=== PATIENT | female | born 1960 | race Caucasian/White ===

== ENCOUNTER 2025-02-22 09:39 | Emergency (ER) | payer OTHER, SELFPAY ==
[2025-02-22] VITALS (10 sets, daily range): BP systolic 123–159; BP diastolic 69–96; PULSE 67–75; BMI 23.1
[2025-02-22 09:53] LABS: Glucose - Point of Care 94 mg/dl (70-99)
[2025-02-22] MEDS: NSS 1000 IV (10:10)
[2025-02-22 10:30] LABS: Hematocrit 37.3 % (37.0-47.0); Hemoglobin 12.5 g/dL (12.0-16.0); Mean Corp Hgb Conc. 33.5 g/dL (33.0-37.0); Mean Corpuscular Volume 84.4 fL (81.0-99.0); Nucleated Red Blood Cells % 0 %; Platelet Count 327 10^3/uL (130-400); Red Cell Dist. Width 13.2 % (11.5-14.5)
[2025-02-22 10:31] LABS: ALT (SGPT) 33 U/L (0-35); AST (SGOT) 28 U/L (14-36); Albumin 4.2 g/dl (3.5-5.0); Alkaline Phosphatase 101 U/L (38-126); Blood Urea Nitrogen 21 mg/dl (7-17); Calcium 9.3 mg/dl (8.4-10.2); Carbon Dioxide 28 mmol/L (22-30); Chloride 104 mmol/L (98-107); Estimated Creatinine Clearance 54 ml/min; Glucose 84 mg/dl (70-99); Potassium 4.6 mmol/L (3.5-5.1); Sodium 137 mmol/L (135-145); Total Protein 7.2 g/dl (6.3-8.2); eGFR > 60.00
--- NOTE | 2025-02-22 10:43 | ED.GENMED ---
History of Present Illness
General
Chief Complaint: Fainting/Passed Out
Time Seen by Provider: 02/22/25 09:44
History of Present Illness
History of Present Illness:
64-year-old female with prior history of cervical fusion and recent diagnosis of a brain tumor presenting to the emergency department for syncope. [facility] from [facility]. She notes that she was laying down and started to feel
dizzy. She stood up to get someone to come help her and next and she knew, she was on the ground. Notes it is a diagnosis of a brain tumor, has had some memory issues and dizziness. She was supposed to follow-up with neurosurgery for possible
operative management, however ended up getting arrested and put in halfway. Denies focal weakness or sensory deficits to her extremities. Does note chronic right lower extremity drop. Does note that she ate breakfast this morning. Has been seen
in the emergency department for syncope in the past. Preceding symptoms, did have an episode of chest discomfort which has since resolved. Denies fever. Denies additional acute medical complaints
Past History
Past History
ED Past Medical History: None
ED Past Surgical History: Orthopedic (neck and back surgeries)
Social History
Tobacco: Smoker
Alcohol: None
Personal: Single
Living: alone
Employment: Disabled
Phy Exam
Physical Exam
Physical Exam:
General: Well-appearing, no clinical signs of dehydration, nontoxic and in no acute distress
HEENT: protecting airway, no midline tenderness. Mild tenderness to the left cervical musculature
Head: atraumatic
Neck: appears supple
CV: Normal heart rate, regular rhythm
Resp: No accessory muscle use, no increased work of breathing, lungs clear to auscultation bilaterally
Abd: No distention
Extremities: No deformities, no swelling
Neuro: alert, no focal neurologic deficit. Chronic reported weakness to the right lower extremity comparison to the left
: deferred
Rectal: deferred
Psych: Normal affect
Skin: Intact
Course
Orders/Labs/Results
Orders:
Orders
02/22/25 09:44
EKG [Electrocardiogram (*1)] Urgent
Reason for Study: Tachycardia
EKG- Treatment ONCE
02/22/25 10:01
Orthostatic VS- Treatment ONCE
0.9% Sodium Chloride 1000 ml [Nss] 1,000 ml IV BOLUS
02/22/25 10:02
CT Head W/o Iv Contrast Urgent
Comment:
Reason For Exam: syncope, hx of 'brain tumor'
02/22/25 10:04
CT Cervical Spine W/o Iv Contr Urgent
Comment:
Reason For Exam: generliazed pain after fall
02/22/25 10:06
Complete Blood Count/With Diff Urgent
Comprehensive Metabolic Panel Urgent
Troponin I Urgent
Abnormal Lab Results
02/22/25
10:06
Monocytes % 9.7 H %
(1.7-9.3)
BUN 21 H mg/dl
(7-17)
02/22/25 10:06
02/22/25 10:06
Vital Signs
Initial and Last Documented VS:
Initial Vital Signs
Temp Pulse Resp BP Pulse Ox
97.8 F 63 18 137/90 97
02/22/25 09:41 02/22/25 09:41 02/22/25 09:41 02/22/25 09:41 02/22/25 09:41
Last Documented Vital Signs
Temp Pulse Resp BP Pulse Ox
97.8 F 60 16 159/89 100
02/22/25 09:41 02/22/25 10:15 02/22/25 10:07 02/22/25 10:07 02/22/25 10:46
MDM/Problems Addressed
MDM/Problems Addressed:
64-year-old female with history of chronic neck and back issues presenting after a syncopal episode. Vital signs on arrival are normal.
On exam patient is resting comfortably, no acute distress. Presently unremarkable cardiac, pulmonary, neurologic exam. Patient notes that her symptoms were preceded with some chest pressure. The symptoms have since resolved. EKG on arrival is
nonischemic. Will screen further with troponin. Lower suspicion for ACS at this time. Patient also notes that she has been having ongoing dizziness ever since she was diagnosed with a brain tumor. She notes that it is benign. Suspected
meningioma. No present focal neurologic deficits with lower suspicion for acute neurologic process, however given patient's prior history, will screen with CT brain imaging. Ultimately suspect orthostatic component. Syncope occurred after lying
to standing position. Will treat with fluids in the setting of volume depletion and screen with laboratory analysis including electrolyte panel
13:00 - Patient's labs are unremarkable and CT brain/cervical spine without acute pathology. Patient remains hemodynamically stable. Orthostatics are reassuring. Ultimately feel stable for discharge back to patient's facility with continued
outpatient supportive therapy and follow-up. Return precautions discussed and patient verbalized understanding
*Pulse Oximetry
SaO2: 100
Oxygen Mode of Delivery: Room air
Patient hypoxic: no
*EKG
Interpreted by ED Provider?: Yes
EKG Intrepretation Date: 02/22/25
EKG Intrepretation Time: 10:46
Interpretation: normal
Heart Rate: 61
Rate: normal
Rhythm: sinus
[place]: normal axis
Interval: normal interval
QRS Pattern: normal QRS
Ischemia: no ischemia
*Critical Care Note
Total Time (30-74mins, 75-104mins- exclusive of procedures): Not Applicable
ED Attending Note
-
Portions of this chart may have been created with voice recognition software.� Occasional wrong word or��sound alike� substitutions may have occurred due to the inherent limitations of voice recognition software.
Discharge Plan
Departure
Prescriptions:
No Action
prazosin 1 mg Capsule
1 mg PO HS
Theragen Tablet
1 tab PO DAILY
acetaminophen 500 mg Tablet
1,000 mg PO TID PRN (Reason: mild pain)
ibuprofen 400 mg Tablet
400 mg PO BID PRN (Reason: mild pain)
mirtazapine 15 mg Tablet
15 mg PO HS
duloxetine [Cymbalta] 30 mg Capsule,Delayed Release(Dr/Ec)
30 mg PO DAILY
Referrals:
[facility] [Family Provider, General]
Interventions
Interventions:
*General Assessment Last Done: 02/22/25 09:41
*Neglect/Abuse Screening Last Done: 02/22/25 09:41
*ED COVID-19 Vaccine History Last Done: 02/22/25 09:41
*ED Influenza Vaccine History Last Done: 02/22/25 09:41
[facility] Fall Risk Assessment Tool Last Done: 02/22/25 09:57
*Risk Screen - Suicide (C-SSRS) Last Done: 02/22/25 09:41
ED- Cardiac Assessment Last Done: 02/22/25 09:55
ED- Neurological Assessment Last Done: 02/22/25 09:59
Discharge Date and Time
Print Language: TURKISH
[2025-02-22 10:44] LABS: Troponin I < 0.012 ng/ml
== END 2025-02-22 13:44 ==
LOC: EMR 09:39
PROVIDERS: EMERGENCY PHYSICIAN Student in an Organized Health Care Education/Training Program
DX: R55 Syncope and collapse (principal); D49.6 Neoplasm of unspecified behavior of brain; F17.200 Nicotine dependence, unspecified, uncomplicated; Z98.1 Arthrodesis status
CPT/HCPCS: 96360; 99284; 70450; 72125; 80053; 82962; 84484; 85025; 93005